=== PATIENT | male | born 2000 | race Caucasian/White ===

== ENCOUNTER → 2019-10-13 | Day surgery (SDC) | payer OTHER ==
[~2019-10-13] VITALS: Ht 185.4 cm; Wt 68.0 kg
--- NOTE | 2019-10-15 08:44 | O ---
[facility] [place] [address] [place] [address] OPERATIVE REPORT Name: FEDERICO GOODEN Room #: REG [facility]..#: [id number] Admission: 10/13/19 Attend Phys: Nallely Menjivar, Discharge: Date of : 89 Report #: [id number] THIS REPORT FOR: cc: KOMAL - Family physician unknown KOMAL - Family physician unknown Nallely Menjivar MD ~ THIS REPORT FOR: //name// CC: KOMAL unknown Nallely Menjivar DATE OF SERVICE: 10/13/2019 PREOPERATIVE DIAGNOSES: 1. 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 2. Left probable radial digital nerve transection of the thumb, left probable ulnar digital nerve transection of the left, probable radial digital nerve transection of the index finger. POSTOPERATIVE DIAGNOSIS: 1. 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 2. Left radial digital nerve transection of the thumb. 3. Left common digital nerve transection to the ulnar side of the thumb and radial side of the index finger. PROCEDURE PERFORMED: Left wrist wound exploration with radial digital nerve repair using allograft nerve to the thumb and common digital nerve repair using allograft to the ulnar side of the thumb and radial side of the index finger. SURGEON: Nallely Menjivar MD ANESTHESIA: General mask anesthesia. ESTIMATED BLOOD LOSS: Minimal. TOURNIQUET TIME: 120 minutes. COMPLICATIONS: None. CONDITION: Stable. DISPOSITION: Recovery room. IMPLANTS USED: Axo[employer] nerve allograft size 1-2 and size 3-4 with nerve wraps size 2 mm and size 4 mm. [facility] [address] [place] [address] OPERATIVE REPORT Name: FEDERICO GOODEN Room #: REG SD M.Ailyn.#: [id number] Admission: 10/13/19 Attend Phys: Nallely Menjivar, Discharge: Date of : 99 Report #: [id number] INDICATIONS: The patient is a 19-year-old male with the above-mentioned diagnosis. He elects for operative treatment. The risks, benefits, alternatives and complications were discussed including but not limited to incomplete relief of his numbness, which we discussed was the most likely scenario, although his numbness should be improved, but will take a very long time up to a year or more, infection, damage to vessels or nerves or worsening of any pain or numbness, any failure to heal of any of his tissues. His dad was present at his bedside. Informed consent was obtained. The correct extremity was identified and labeled by myself after verbal confirmation of the patient as well as visual confirmation and signed informed consent. DESCRIPTION OF PROCEDURE: The patient was brought back to the OR and placed on the operating room in a supine position. He received preoperative antibiotics. Tourniquet was placed over padding on the patient's left upper extremity and lower extremity was sterilely prepped and draped in the usual fashion. Final timeout was taken to verify correct patient, operative procedure, operative site, all concurred. The arm was elevated, exsanguinated and tourniquet inflated. The entire procedure was done with the aid of 3.5 loupe magnification. Next, a 4-5 cm longitudinal wound that had previously healed was utilized. It extended to the base of the thenar eminence distal angled towards the mid portion between the index and long metacarpal heads. It was extended both proximally and distally minimally at this point. Dissection was carried down through subcutaneous tissue with tenotomy scissors. There was a moderate amount of scar tissue along the prior wound. Next, the distal nerves were identified there. The radial digital nerve to the thumb was easily identified. It was freed, it was completely transected and mobilized from the scar tissue. Common digital nerve to the ulnar digital nerve of the thumb and radial digital nerve to the index was also found to be completely transected and dissected out of a very large amount of scar tissue. Next, the proximal radial digital nerve stump was fairly easily identified. The common digital nerve stump was more difficult to identify. I was able to identify but this did require extension of the incision through the carpal tunnel in order to find the normal portion of the nerve and dissect distally. The ulnar digital nerve to the index was intact. All the stumps were identified and were sharply cut back to healthy nerve tissue. Next, the common digital stump was measured at 3-4 mm and the radial digital nerve to the thumb was measured at 1-2 and so these allografts were placed and sutured without tension using microsurgical techniques and 9-0 nylon suture. The common digital nerve gap was approximately 1.5 cm. The radial digital nerve gap was approximately 1.2 cm. A nerve wrap was placed around each and careful attention placed avoiding placing it too tightly. It was sutured to each end of the ho-chunk nerve to decrease the tension on the repair site. The repair junctions were identified after placement of the wrap and they were all found to be in good condition. Of note, prior to preparing the nerve, the distal stump of the FDS was found to be completely transected on the index finger proximal to the cash system. The proximal stump was unable to be located and due to the fact that the injury was nearly 5 weeks old and he had a [facility] [address] [place] [address] OPERATIVE REPORT Name: FEDERICO GOODEN Room #: REG [facility] Lam#: [id number] Admission: 10/13/19 Attend Phys: Nallely Menjivar, Discharge: Date of : 89 Report #: [id number] functioning flexor digitorum profundus tendon, I elected to not pursue a repair of this tendon as most likely I would put it under significant stress and most likely would fail. We discussed this multiple times with the patient including in my office as well as the preop holding area. The wound was thoroughly irrigated. The skin was closed with 4-0 nylon suture. The tourniquet had been deflated. The wound was dressed with Adaptic and sterile gauze. He was placed in a bulky dressing and a thumb spica splint with the wrist slightly flexed. All fingers were pink and had brisk capillary refill at the conclusion of case after deflation of tourniquet. All sponge and needle counts were correct. The patient was transferred to postoperative recovery room in stable condition. <ELECTRONICALLY SIGNED> By: Nallely Menjivar MD 10/15/19 [id number] Nallely Menjivar MD /nt
== END | disposition home or self-care (01) ==
LOC: OR 09:02
DX: S64.32XA Injury of digital nerve of left thumb, initial encounter (principal); S64.491A Injury of digital nerve of left index finger, initial encounter; S66.902A Unspecified injury of unspecified muscle, fascia and tendon at wrist and hand level, left hand, initial encounter; Z98.890 Other specified postprocedural states; Z79.899 Other long term (current) drug therapy; Z88.8 Allergy status to other drugs, medicaments and biological substances; X58.XXXA Exposure to other specified factors, initial encounter; Y93.89 Activity, other specified; Y92.89 Other specified places as the place of occurrence of the external cause; Y99.8 Other external cause status
CPT/HCPCS: 50010; 50101; 50386; 56526; 56528; 56532; 57006; 57091; 57147; 57148; 57178; 62110; 62900

== ENCOUNTER 2020-03-01 18:34 | Emergency (ER) | payer OTHER ==
[~2020-03-01] VITALS: Ht 182.9 cm; Wt 63.5 kg
[2020-03-01 18:35] VITALS: BP 125/85
[2020-03-01] MEDS ORDERED: MOBIC7.5 MG PO (19:21)
== END 2020-03-01 19:55 | disposition home or self-care (01) ==
LOC: ER 18:34
DX: S60.322A Blister (nonthermal) of left thumb, initial encounter (principal); F90.9 Attention-deficit hyperactivity disorder, unspecified type; M70.842 Other soft tissue disorders related to use, overuse and pressure, left hand; Z88.8 Allergy status to other drugs, medicaments and biological substances; Z91.040 Latex allergy status; X58.XXXA Exposure to other specified factors, initial encounter; Y93.89 Activity, other specified; Y92.89 Other specified places as the place of occurrence of the external cause; Y99.8 Other external cause status